=== PATIENT | female | born 2000 | race Two or more races ===

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

== ENCOUNTER 2024-07-30 16:14 | Emergency (ER) | payer OTHER ==
[~2024-07-30] VITALS: Ht 157.5 cm; Wt 95.0 kg
[2024-07-30 16:55] LABS: Urine Bacteria None Seen /hpf (None Seen)
[2024-07-30 17:15] LABS: Urine Blood Negative /uL (Negative); Urine Clarity Clear (Clear); Urine Color Yellow (Yellow); Urine Mucus FEW (None Seen); Urine Protein, UAD 1+ (Negative); Urine Specific Gravity 1.044 (1.001-1.035); Urine Urobilinogen Normal (Negative); Urine WBC 2 /hpf (0 - 5)
[2024-07-30 17:29] LABS: Basophils # (auto) 0 10 ^3/uL (0-0.2); Basophils % (auto) 0.3 % (0.0-2.0); Eosinophils # (auto) 0.2 10 ^3/uL (0-0.8); Eosinophils % (auto) 1.2 % (0.0-7.0); Hematocrit 44.1 % (36.0-46.0); Hemoglobin 15.2 g/dL (12.2-16.2); Lymphocytes # (auto) 1.8 10 ^3/uL (0.4-5.4); Lymphocytes % (auto) 13.4 % (10.0-50.0); Mean Corpuscular Hemoglobin 27.6 pg (28.0-32.0); Mean Corpuscular Hgb Conc. 34.4 g/dL (32.0-36.0); Mean Corpuscular Volume 80.4 fL (80.0-100.0); Monocytes # (auto) 0.5 10 ^3/uL (0-1.3); Monocytes % (auto) 3.9 % (0.0-12.0); Neutrophils # (auto) 10.8 10 ^3/uL (1.6-8.6); Neutrophils % (auto) 81.2 % (37.0-80.0); Nucleated Red Blood Cells % 0.1 %; Platelet Count (auto) 337 10^3/uL (140-450); Red Blood Cells 5.49 10^6/uL (4.0-5.20); Red Cell Distribution Width 13.3 % (11.8-14.3); White Blood Cell 13.3 10^3/uL (4.4-10.8)
[2024-07-30 17:32] LABS: Chloride 110 mmol/L (98-107); Potassium 3.6 mmol/L (3.5-5.1); Sodium 139 mmol/L (136-145)
[2024-07-30 17:33] LABS: Anion Gap 5 (5-15); Calcium 9.3 mg/dL (8.7-10.4); Carbon Dioxide 24 mmol/L (20-31)
[2024-07-30 17:38] LABS: BUN/Creatinine Ratio 11.7 (10.0-20.0); Blood Urea Nitrogen 9 mg/dL (9-23); Glucose 149 mg/dL (74-106)
[2024-07-30 17:39] LABS: Lipase 31 U/L (12-53)
[2024-07-30] MEDS: DICYCLOMINE HCL (10MG/ML) 2 ML AMPULE IM ONE (18:00)
[2024-07-30] MEDS: DICYCLOMINE HCL 10 MG CAP PO ONE (18:07)
[2024-07-30] MEDS: HYDROcodone-ACET 10/325MG TAB PO ONE (19:32)
[2024-07-30 19:34] VITALS: BP 122/76; PULSE 89; RESP 18; TEMP 98.9; O2SAT 99
[2024-07-30] MEDS ORDERED: HYDR-4902 PO (20:37)
== END 2024-07-30 20:58 | disposition home or self-care (01) ==
LOC: ER 16:14
DX: R93.89 Abnormal findings on diagnostic imaging of other specified body structures (principal); R10.2 Pelvic and perineal pain; D27.9 Benign neoplasm of unspecified ovary
CPT/HCPCS: 36415; 74176; 76856; 80048; 81001; 83690; 84702; 85025; 99284; J0500